=== PATIENT | male | born 1970 | race Caucasian/White ===

== ENCOUNTER 2024-10-06 12:24 | Inpatient (IN) | payer OTHER ==
[~2024-10-06] VITALS: Ht 172.7 cm; Wt 102.2 kg
[2024-10-06 12:29] VITALS: PULSE 105; RESP 21; O2SAT 100; O2SAT 99
[2024-10-06 12:43] LABS: PLATELET COUNT (AUTO) 149 K/uL (150-450); RED BLOOD CELL COUNT(AUTO) 3.86 MIL/uL (4.50-5.90); RED CELL DISTRIBUTION WIDTH 17.9 % (11.5-14.5); WHITE BLOOD COUNT (AUTO) 9.2 K/uL (4.5-11.0)
[2024-10-06] MEDS ORDERED: ASPI-1444 PO (12:46)
[2024-10-06] MEDS ORDERED: LEVO200 PO (12:46)
[2024-10-06] MEDS ORDERED: INSU3INS3 SQ (12:46)
[2024-10-06] MEDS ORDERED: PHOSLOC PO (12:46)
[2024-10-06] MEDS ORDERED: ATOR40TA28 PO (12:46)
[2024-10-06] MEDS ORDERED: FURO40TA6 PO (12:46)
[2024-10-06] MEDS ORDERED: AMLO-257 PO (12:46)
[2024-10-06] MEDS ORDERED: INSU100V42 SQ (12:46)
[2024-10-06 13:00] LABS: CALCIUM, TOTAL 10.5 mg/dL (8.8-10.5); CREATININE 4.33 mg/dL (0.60-1.30); GLOMERULAR FILTR. RATE CALC 14 mL/min (>60); GLUCOSE,RANDOM 248 mg/dL (70-110); SODIUM SERUM 141 mmol/L (136-145); UREA NITROGEN, BLOOD 15 mg/dL (7-18)
[2024-10-06 13:05] LABS: ASPARTATE AMINOTRANSFERASE 69 U/L (15-37); CREATINE KINASE, TOTAL ONLY 158 U/L (39-308); TOTAL PROTEIN, SERUM 7.3 g/dL (6.4-8.2)
[2024-10-06 13:14] LABS: TROPONIN I-HIGH SENSITIVITY 80 ng/L (<76)
[2024-10-06 13:20] LABS: LACTIC ACID 8.0 mmol/L (0.4-2.0)
[2024-10-06] MEDS: PROPOFOL 1000 MG/ISO-OSM 100 ML IV PRN (13:27)
[2024-10-06] MEDS ORDERED: FISH1CAP27 PO (13:35)
[2024-10-06] MEDS ORDERED: FOLI1CAP23 PO (13:35)
[2024-10-06] MEDS ORDERED: METR500 PO (13:35)
[2024-10-06] MEDS ORDERED: TRAM50TA5 PO (13:35)
[2024-10-06] MEDS ORDERED: ASCO500T20 PO (13:35)
[2024-10-06] MEDS ORDERED: LEVO50TA11 PO (13:35)
[2024-10-06] MEDS ORDERED: ONDANSETRON HCL 4 MG/2 ML VIAL IVP PRN (13:45)
[2024-10-06] MEDS: *CLINICAL-LEVOFLOXACIN IVPB DOSING CLINICAL ONE (14:03)
[2024-10-06] MEDS ORDERED: VANCOMYCIN 1GM/WATER(PEG/NADA) 200 ML IV PRN (14:15)
[2024-10-06 14:48] LABS: TROPONIN I-HIGH SENSITIVITY 469 ng/L (<76)
[2024-10-06] MEDS: HEPARIN SODIUM,PORCINE 5,000 UNITS/ML VIAL SQ SCH (16:00)
[2024-10-06] MEDS: LEVOFLOXACIN 750 MG/D5% WATER 150 ML IV ONE (16:02)
[2024-10-06 16:22] LABS: TROPONIN I-HIGH SENSITIVITY 1926 ng/L (<76)
[2024-10-06 16:23] LABS: LACTATE DEHYDROGENASE 360.0 U/L (85-227); PHOSPHORUS 4.3 mg/dL (2.5-4.9)
[2024-10-06] MEDS: VANCOMYCIN 1.5 GM/WATER(PEG) 300 ML IV ONE (16:33)
[2024-10-06 16:49] VITALS: PULSE 94; RESP 33; O2SAT 99
[2024-10-06 16:53] LABS: ABG BASE EXCESS 2.0 mmol/L (-2.0-3.0); ABG CARBOXYHEMOGLOBIN 0.3 % (0.5-1.5); ABG HCO3 26.6 mmol/L (21.0-28.0); ABG METHEMOGLOBIN 0.9 % (0.0-1.5); ABG OXYGEN CONTENT 15.1 mL/dL (15.0-23.0); ABG OXYGEN SATURATION 99.7 % (94.0-98.0); ABG OXYHEMOGLOBIN 98.5 % (94.0-98.0); ABG PCO2 33 mmHg (32.0-48.0); ABG PH 7.501 (7.350-7.450); ABG TOTAL HEMOGLOBIN 10.5 G/dL (13.5-17.5); FRACTIONATED INSPIRED OXYGEN 80.0 % (21-100.0); PO2, ARTERIAL BG 219.1 mmHg (83.0-108.0); SOURCE, BLOOD GAS ARTERIAL; TEMPERATURE, FAHRENHEIT, BG 99.1 FAHREN (96.0-98.6)
[2024-10-06] MEDS ORDERED: AMIODARONE HCL 50 MG/ML 3 ML VIAL ONE (18:00)
[2024-10-06] MEDS ORDERED: EPINEPHrine 1:10,000 [1 MG/10 ML] SYRINGE ONE (18:00)
[2024-10-06] MEDS ORDERED: CALCIUM CHLORIDE 100 MG/ML 10 ML SYRINGE IVP ONE (18:00)
[2024-10-06] MEDS ORDERED: SODIUM BICARBONATE [ADULT] 8.4% 50 MEQ/50 ML SYRINGE IVP ONE (18:00)
[2024-10-06] MEDS ORDERED: CALCIUM GLUCONATE 100 MG/ML 10 ML IVP ONE (18:00)
[2024-10-06 18:04] LABS: SITE, BLOOD GAS LFT BRACHIAL
[2024-10-06 18:05] LABS: ABG A-A DIFF O2 316.1 mmHg (10-20.0); O2 DEVICE,BLOOD GAS VENTILATOR (ROOM AIR); PEEP,BG 5 cm H2O; SET RATE, BG 20.0 min.; VT, ABG 420 ml
[2024-10-06] MEDS ORDERED: SODIUM CHLORIDE 0.9% 500 ML IV ONE (18:38)
[2024-10-06] MEDS ORDERED: PHENYLEPHRINE 200 MG/D5%-WATER 250 ML IV PRN (19:15)
[2024-10-06] MEDS: NOREPINEPHRINE 8 MG/0.9 % NACL 250 ML IV PRN (19:16)
[2024-10-06] MEDS: MetroNIDAZOLE 500 MG/NACL 100 ML IV SCH (19:22)
[2024-10-06] MEDS: FentaNYL CIT 1000MCG/0.9% NACL 100 ML IV PRN (19:30)
[2024-10-06 19:53] VITALS: PULSE 73; RESP 24; O2SAT 98
[2024-10-06 19:54] VITALS: PULSE 73; RESP 24; O2SAT 98
[2024-10-06 20:00] VITALS: BP 101/50; PULSE 73; RESP 18; RESP 25; TEMP 99; O2SAT 100
[2024-10-06] MEDS ORDERED: DEXTROSE 50%-WATER 25 GM/50 ML SYRINGE IVP PRN (20:15)
[2024-10-06] MEDS: DOCUSATE SODIUM 100 MG CAPSULE PO SCH (20:39)
[2024-10-06 20:56] LABS: GLUCOMETER DEV NAME(LOC) ICU.S6; GLUCOSE,POINT OF CARE 243 MG/DL (70-110)
[2024-10-06] MEDS: CHLORHEXIDINE GLUCONATE 2% TOWELETTE [2'S/6'S] TP SCH (21:19)
[2024-10-06 21:20] LABS: ASPARTATE AMINOTRANSFERASE 107.0 U/L (15-37); CREATININE 4.7 mg/dL (0.60-1.30); GLOMERULAR FILTR. RATE CALC 13.0 mL/min (>60); GLUCOSE,RANDOM 238.0 mg/dL (70-110); SODIUM SERUM 138.0 mmol/L (136-145); TOTAL PROTEIN, SERUM 6.7 g/dL (6.4-8.2); UREA NITROGEN, BLOOD 22.0 mg/dL (7-18)
[2024-10-06 21:46] LABS: CALCIUM, TOTAL 8.8 mg/dL (8.8-10.5); PHOSPHORUS 4.1 mg/dL (2.5-4.9)
[2024-10-06 22:08] VITALS: PULSE 54; RESP 18; O2SAT 99
[2024-10-07] VITALS (17 sets, daily range): BP systolic 93–140; BP diastolic 45–73; PULSE 40–75; RESP 18–22; TEMP 92.3–93.5; O2SAT 98–100
[2024-10-07] MEDS: INSULIN LISPRO 100 UNITS/ML SQ PRN (00:15)
[2024-10-07 01:24] LABS: ABG BASE EXCESS -1.3 mmol/L (-2.0-3.0); ABG CARBOXYHEMOGLOBIN 0.3 % (0.5-1.5); ABG HCO3 23.4 mmol/L (21.0-28.0); ABG METHEMOGLOBIN 0.3 % (0.0-1.5); ABG OXYGEN CONTENT 16.1 mL/dL (15.0-23.0); ABG OXYGEN SATURATION 99.0 % (94.0-98.0); ABG OXYHEMOGLOBIN 98.4 % (94.0-98.0); ABG PCO2 35 mmHg (32.0-48.0); ABG PH 7.430 (7.350-7.450); ABG TOTAL HEMOGLOBIN 11.4 G/dL (13.5-17.5); FRACTIONATED INSPIRED OXYGEN 60.0 % (21-100.0); PO2, ARTERIAL BG 143.9 mmHg (83.0-108.0); SOURCE, BLOOD GAS ARTERIAL; TEMPERATURE, FAHRENHEIT, BG 91.0 FAHREN (96.0-98.6)
[2024-10-07 01:25] LABS: ALLEN TEST, BLOOD GAS Positive; FLOW, BLOOD GAS 15.00 L/min (0.00-15.00); O2 DEVICE,BLOOD GAS VENTILATOR (ROOM AIR); SITE, BLOOD GAS LFT RADIAL; VT, ABG 420 ml
[2024-10-07 01:26] LABS: PEEP,BG 5 cm H2O; SET RATE, BG 18.0 min.
[2024-10-07 01:31] LABS: GLUCOMETER DEV NAME(LOC) ICUN.5; GLUCOSE,POINT OF CARE 198 MG/DL (70-110)
[2024-10-07 02:29] LABS: ASPARTATE AMINOTRANSFERASE 100.0 U/L (15-37); CALCIUM, TOTAL 9.2 mg/dL (8.8-10.5); CREATININE 5.14 mg/dL (0.60-1.30); GLOMERULAR FILTR. RATE CALC 12.0 mL/min (>60); GLUCOSE,RANDOM 199.0 mg/dL (70-110); PHOSPHORUS 4.7 mg/dL (2.5-4.9); SODIUM SERUM 136.0 mmol/L (136-145); TOTAL PROTEIN, SERUM 7.3 g/dL (6.4-8.2); UREA NITROGEN, BLOOD 27.0 mg/dL (7-18)
[2024-10-07] MEDS: ATROPINE SULFATE 0.1 MG/ML 10 ML SYRINGE IVP ONE (02:29)
[2024-10-07] MEDS ORDERED: DOPamine 400MG/D5W[STANDARD] 250 ML IV PRN ×2 (02:30→07:15)
[2024-10-07] MEDS: DEXTROSE 50%-WATER 25 GM/50 ML SYRINGE IVP ONE (03:51)
[2024-10-07] MEDS: INSULIN REGULAR, HUMAN 100 UNITS/ML IVP ONE (03:52)
[2024-10-07] MEDS: CALCIUM GLUCONATE 100 MG/ML 10 ML IVP ONE (03:52)
[2024-10-07] MEDS: SODIUM BICARBONATE [ADULT] 8.4% 50 MEQ/50 ML SYRINGE IVP ONE (03:52)
[2024-10-07] MEDS ORDERED: 0.9% SODIUM CHLORIDE 5 ML NEB SOLUTION NEB ONE (03:52)
[2024-10-07] MEDS: ALBUTEROL SULFATE 2.5 MG/0.5 ML NEB SOLUTION NEB ONE (04:00)
[2024-10-07 05:42] LABS: PLATELET COUNT (AUTO) 145 K/uL (150-450); RED BLOOD CELL COUNT(AUTO) 3.48 MIL/uL (4.50-5.90); RED CELL DISTRIBUTION WIDTH 17.5 % (11.5-14.5); WHITE BLOOD COUNT (AUTO) 8.5 K/uL (4.5-11.0)
[2024-10-07 05:53] LABS: ASPARTATE AMINOTRANSFERASE 92.0 U/L (15-37); CALCIUM, TOTAL 9.5 mg/dL (8.8-10.5); CREATININE 5.45 mg/dL (0.60-1.30); GLOMERULAR FILTR. RATE CALC 11.0 mL/min (>60); GLUCOSE,RANDOM 163.0 mg/dL (70-110); SODIUM SERUM 139.0 mmol/L (136-145); TOTAL PROTEIN, SERUM 6.9 g/dL (6.4-8.2); UREA NITROGEN, BLOOD 28.0 mg/dL (7-18)
[2024-10-07 08:06] LABS: GLUCOMETER DEV NAME(LOC) ICU.S6; GLUCOSE,POINT OF CARE 160 MG/DL (70-110)
[2024-10-07 08:27] LABS: ABG BASE EXCESS 2.3 mmol/L (-2.0-3.0); ABG CARBOXYHEMOGLOBIN 0.1 % (0.5-1.5); ABG HCO3 26.8 mmol/L (21.0-28.0); ABG METHEMOGLOBIN 0.3 % (0.0-1.5); ABG OXYGEN CONTENT 13.5 mL/dL (15.0-23.0); ABG OXYGEN SATURATION 98.7 % (94.0-98.0); ABG OXYHEMOGLOBIN 98.3 % (94.0-98.0); ABG PCO2 28 mmHg (32.0-48.0); ABG TOTAL HEMOGLOBIN 9.6 G/dL (13.5-17.5); FRACTIONATED INSPIRED OXYGEN 50.0 % (21-100.0); PO2, ARTERIAL BG 114.2 mmHg (83.0-108.0); SOURCE, BLOOD GAS ARTERIAL; TEMPERATURE, FAHRENHEIT, BG 92.7 FAHREN (96.0-98.6)
[2024-10-07 08:29] LABS: ABG PH 7.567 (7.350-7.450); ALLEN TEST, BLOOD GAS POS; O2 DEVICE,BLOOD GAS VENTILATOR (ROOM AIR); PATIENT RATE, BG 18.0 min.; PEEP,BG 5 cm H2O; SET RATE, BG 18.0 min.; SITE, BLOOD GAS LFT RADIAL; VT, ABG 420 ml
[2024-10-07 08:56] LABS: PHOSPHORUS 4.6 mg/dL (2.5-4.9)
[2024-10-07] MEDS ORDERED: FAMOTIDINE 20 MG TABLET PO SCH (09:00)
[2024-10-07] MEDS ORDERED: SODIUM CHLORIDE 0.9% 500 ML IV ONE (11:00)
[2024-10-07] MEDS: ROCURONIUM BROMIDE 10 MG/ML 5 ML VIAL IVP ONE (11:35)
[2024-10-07] MEDS ORDERED: NALO4SPR22 NASAL (12:19)
[2024-10-07] MEDS ORDERED: SEMA0.258 SQ (12:19)
[2024-10-07] MEDS ORDERED: INSU100I3 SQ (12:19)
[2024-10-07 13:10] LABS: TROPONIN I-HIGH SENSITIVITY 13255 ng/L (<76)
[2024-10-07 13:11] LABS: GLUCOMETER DEV NAME(LOC) ICUN.5; GLUCOSE,POINT OF CARE 121 MG/DL (70-110)
[2024-10-07] MEDS ORDERED: HEPARIN SODIUM,PORCINE 5,000 UNITS/ML VIAL IVP PRN ×2 (14:00)
[2024-10-07 14:15] LABS: ABG BASE EXCESS 3.4 mmol/L (-2.0-3.0); ABG CARBOXYHEMOGLOBIN 0.3 % (0.5-1.5); ABG HCO3 27.4 mmol/L (21.0-28.0); ABG METHEMOGLOBIN 0.3 % (0.0-1.5); ABG OXYGEN CONTENT 14.2 mL/dL (15.0-23.0); ABG OXYGEN SATURATION 98.7 % (94.0-98.0); ABG OXYHEMOGLOBIN 98.1 % (94.0-98.0); ABG PCO2 33 mmHg (32.0-48.0); ABG PH 7.516 (7.350-7.450); ABG TOTAL HEMOGLOBIN 10.1 G/dL (13.5-17.5); FRACTIONATED INSPIRED OXYGEN 50.0 % (21-100.0); PO2, ARTERIAL BG 104.9 mmHg (83.0-108.0); SOURCE, BLOOD GAS ARTERIAL; TEMPERATURE, FAHRENHEIT, BG 91.7 FAHREN (96.0-98.6)
[2024-10-07 14:16] LABS: ALLEN TEST, BLOOD GAS POS; O2 DEVICE,BLOOD GAS VENTILATOR (ROOM AIR); PATIENT RATE, BG 18.0 min.; PEEP,BG 5 cm H2O; SET RATE, BG 18.0 min.; SITE, BLOOD GAS LFT RADIAL; VT, ABG 380 ml
[2024-10-07 14:41] LABS: PLATELET COUNT (AUTO) 142 K/uL (150-450); RED BLOOD CELL COUNT(AUTO) 3.11 MIL/uL (4.50-5.90); RED CELL DISTRIBUTION WIDTH 18.0 % (11.5-14.5); WHITE BLOOD COUNT (AUTO) 8.6 K/uL (4.5-11.0)
[2024-10-07] MEDS: ASPIRIN 81 MG CHEWABLE TABLET PO ONE (14:41)
[2024-10-07] MEDS: PANTOPRAZOLE SODIUM 40 MG/VIAL IVP SCH (14:41)
[2024-10-07] MEDS: HEPARIN SODIUM 25000 UNITS/D5W 250 ML IV PRN (15:09)
[2024-10-07] MEDS: HEPARIN SODIUM,PORCINE 5,000 UNITS/ML VIAL IVP ONE (15:09)
[2024-10-07 18:32] LABS: ASPARTATE AMINOTRANSFERASE 66.0 U/L (15-37); CALCIUM, TOTAL 9.1 mg/dL (8.8-10.5); CREATININE 5.9 mg/dL (0.60-1.30); GLOMERULAR FILTR. RATE CALC 10.0 mL/min (>60); GLUCOSE,RANDOM 124.0 mg/dL (70-110); PHOSPHORUS 5.7 mg/dL (2.5-4.9); SODIUM SERUM 138.0 mmol/L (136-145); TOTAL PROTEIN, SERUM 6.6 g/dL (6.4-8.2); UREA NITROGEN, BLOOD 34.0 mg/dL (7-18)
[2024-10-07 19:38] LABS: ABG METHEMOGLOBIN 0.3 % (0.0-1.5); FRACTIONATED INSPIRED OXYGEN 35.0 % (21-100.0); SOURCE, BLOOD GAS ARTERIAL; TEMPERATURE, FAHRENHEIT, BG 93.3 FAHREN (96.0-98.6)
[2024-10-07 19:41] LABS: ABG BASE EXCESS 0.6 mmol/L (-2.0-3.0); ABG CARBOXYHEMOGLOBIN 0.6 % (0.5-1.5); ABG HCO3 25.0 mmol/L (21.0-28.0); ABG OXYGEN CONTENT 14.7 mL/dL (15.0-23.0); ABG OXYGEN SATURATION 97.1 % (94.0-98.0); ABG OXYHEMOGLOBIN 96.2 % (94.0-98.0); ABG PCO2 36 mmHg (32.0-48.0); ABG PH 7.456 (7.350-7.450); ABG TOTAL HEMOGLOBIN 10.8 G/dL (13.5-17.5); PO2, ARTERIAL BG 78.3 mmHg (83.0-108.0)
[2024-10-07 19:42] LABS: O2 DEVICE,BLOOD GAS VENTILATOR (ROOM AIR); SITE, BLOOD GAS LFT RADIAL
[2024-10-07 19:43] LABS: ABG A-A DIFF O2 132.3 mmHg (10-20.0); PATIENT RATE, BG 21.0 min.; PEEP,BG 5 cm H2O; SET RATE, BG 18.0 min.; SPONTANEOUS VT, BG 685 ml; VT, ABG 380 ml
[2024-10-07] MEDS: ATORVASTATIN CALCIUM 40 MG TABLET PO SCH (20:36)
[2024-10-08] VITALS (14 sets, daily range): BP systolic 108–164; BP diastolic 31–51; PULSE 63–83; RESP 18–26; TEMP 96.5–100.7; O2SAT 94–98
[2024-10-08] MEDS ORDERED: SODIUM CHLORIDE 0.9% 250 ML IV ONE (03:20)
[2024-10-08 03:40] LABS: GLUCOMETER DEV NAME(LOC) ICUN.5; GLUCOSE,POINT OF CARE 109 MG/DL (70-110)
[2024-10-08 04:26] LABS: PLATELET COUNT (AUTO) 169 K/uL (150-450); RED BLOOD CELL COUNT(AUTO) 3.41 MIL/uL (4.50-5.90); RED CELL DISTRIBUTION WIDTH 17.6 % (11.5-14.5); WHITE BLOOD COUNT (AUTO) 11.6 K/uL (4.5-11.0)
[2024-10-08 04:37] LABS: CALCIUM, TOTAL 8.8 mg/dL (8.8-10.5); CREATININE 6.3 mg/dL (0.60-1.30); GLOMERULAR FILTR. RATE CALC 9.0 mL/min (>60); GLUCOSE,RANDOM 124.0 mg/dL (70-110); SODIUM SERUM 135.0 mmol/L (136-145); UREA NITROGEN, BLOOD 36.0 mg/dL (7-18)
[2024-10-08] MEDS ORDERED: POLYETHYLENE GLYCOL 3350 17 GM PACKET GT SCH (07:00)
[2024-10-08] MEDS: VANCOMYCIN 500 MG/WATER(PEG) 100 ML IV ONE (08:36)
[2024-10-08] MEDS: POLYETHYLENE GLYCOL 3350 17 GM PACKET PO ONE (08:37)
[2024-10-08] MEDS: DOCUSATE SODIUM 100 MG/10 ML LIQUID UDCUP GT SCH (08:37)
[2024-10-08] MEDS: ASPIRIN 81 MG CHEWABLE TABLET PO SCH (08:37)
[2024-10-08] MEDS: ETHYL ALCOHOL 62% ANTISEPTIC NASAL SANITIZER 0.6 ML AMPUL NASAL SCH (08:38)
[2024-10-08] MEDS ORDERED: DOCUSATE SODIUM 100 MG CAPSULE GT SCH (09:00)
[2024-10-08 09:14] LABS: TROPONIN I-HIGH SENSITIVITY 8280 ng/L (<76)
[2024-10-08 09:56] LABS: GLUCOMETER DEV NAME(LOC) ICUN.5; GLUCOSE,POINT OF CARE 102 MG/DL (70-110)
[2024-10-08] MEDS: DEXMEDETOMIDINE 400 MCG/NS 100 ML IV PRN (10:37)
[2024-10-08] MEDS: ACETAMINOPHEN 325 MG TABLET PO PRN (10:51)
[2024-10-08] MEDS: LEVOFLOXACIN 500 MG/D5% WATER 100 ML IV SCH (15:37)
[2024-10-08] MEDS: PROPOFOL 1000 MG/ISO-OSM 100 ML IV PRN (15:46)
[2024-10-08 16:01] LABS: GLUCOMETER DEV NAME(LOC) ICUN.5; GLUCOSE,POINT OF CARE 134 MG/DL (70-110)
[2024-10-08 20:35] LABS: GLUCOMETER DEV NAME(LOC) ICUN.5; GLUCOSE,POINT OF CARE 137 MG/DL (70-110)
[2024-10-08 22:55] LABS: OCCULT BLOOD,GASTRIC FLUID POSITIVE (NEGATIVE); PH, GASTRIC OKAY
[2024-10-09] VITALS (22 sets, daily range): BP systolic 92–143; BP diastolic 27–69; PULSE 56–81; RESP 11–21; TEMP 98.7–99.7; O2SAT 96–99
[2024-10-09 01:11] LABS: GLUCOMETER DEV NAME(LOC) ICUN.5; GLUCOSE,POINT OF CARE 124 MG/DL (70-110)
[2024-10-09 05:28] LABS: PLATELET COUNT (AUTO) 198 K/uL (150-450); RED BLOOD CELL COUNT(AUTO) 3.35 MIL/uL (4.50-5.90); RED CELL DISTRIBUTION WIDTH 17.7 % (11.5-14.5); WHITE BLOOD COUNT (AUTO) 13.0 K/uL (4.5-11.0)
[2024-10-09 05:43] LABS: CALCIUM, TOTAL 8.6 mg/dL (8.8-10.5); CREATININE 8.02 mg/dL (0.60-1.30); GLOMERULAR FILTR. RATE CALC 7.0 mL/min (>60); GLUCOSE,RANDOM 138.0 mg/dL (70-110); SODIUM SERUM 138.0 mmol/L (136-145); UREA NITROGEN, BLOOD 50.0 mg/dL (7-18)
[2024-10-09 06:25] LABS: GLUCOMETER DEV NAME(LOC) ICUN.5; GLUCOSE,POINT OF CARE 136 MG/DL (70-110)
[2024-10-09] MEDS: PANTOPRAZOLE SODIUM 40 MG/VIAL IVP SCH (08:49)
[2024-10-09 11:56] LABS: GLUCOMETER DEV NAME(LOC) ICUN.5; GLUCOSE,POINT OF CARE 129 MG/DL (70-110)
[2024-10-09] MEDS ORDERED: SODIUM CHLORIDE 0.9% 250 ML IV ONE (19:57)
[2024-10-09 20:06] LABS: GLUCOMETER DEV NAME(LOC) ICU.S6; GLUCOSE,POINT OF CARE 119 MG/DL (70-110)
[2024-10-10] VITALS (13 sets, daily range): BP systolic 91–127; BP diastolic 32–65; PULSE 52–76; RESP 18–28; TEMP 96.7–98.3; O2SAT 89–100
[2024-10-10 02:26] LABS: GLUCOMETER DEV NAME(LOC) ICU.S6; GLUCOSE,POINT OF CARE 119 MG/DL (70-110)
[2024-10-10 05:13] LABS: PLATELET COUNT (AUTO) 181 K/uL (150-450); RED BLOOD CELL COUNT(AUTO) 3.09 MIL/uL (4.50-5.90); RED CELL DISTRIBUTION WIDTH 17.8 % (11.5-14.5); WHITE BLOOD COUNT (AUTO) 7.0 K/uL (4.5-11.0)
[2024-10-10 05:20] LABS: CALCIUM, TOTAL 8.3 mg/dL (8.8-10.5); CREATININE 5.76 mg/dL (0.60-1.30); GLOMERULAR FILTR. RATE CALC 10.0 mL/min (>60); GLUCOSE,RANDOM 126.0 mg/dL (70-110); SODIUM SERUM 134.0 mmol/L (136-145); UREA NITROGEN, BLOOD 41.0 mg/dL (7-18)
[2024-10-10 07:00] LABS: GLUCOMETER DEV NAME(LOC) ICU.S6; GLUCOSE,POINT OF CARE 124 MG/DL (70-110)
[2024-10-10] MEDS: AMINO ACIDS/PROTEIN HYDROLYS 30 ML LIQUID TUBE NG SCH (09:49)
[2024-10-11] VITALS (23 sets, daily range): BP systolic 97–161; BP diastolic 35–71; PULSE 64–83; RESP 12–24; TEMP 96.3–97.4; O2SAT 97–99
[2024-10-11 01:51] LABS: GLUCOMETER DEV NAME(LOC) ICU.S6; GLUCOSE,POINT OF CARE 133 MG/DL (70-110)
[2024-10-11 06:11] LABS: CALCIUM, TOTAL 8.0 mg/dL (8.8-10.5); CREATININE 7.03 mg/dL (0.60-1.30); GLOMERULAR FILTR. RATE CALC 8.0 mL/min (>60); GLUCOSE,RANDOM 148.0 mg/dL (70-110); SODIUM SERUM 135.0 mmol/L (136-145); UREA NITROGEN, BLOOD 55.0 mg/dL (7-18)
[2024-10-11 06:14] LABS: PHOSPHORUS 8.8 mg/dL (2.5-4.9)
[2024-10-11 07:21] LABS: GLUCOMETER DEV NAME(LOC) ICU.S6; GLUCOSE,POINT OF CARE 140 MG/DL (70-110)
[2024-10-11] MEDS: VANCOMYCIN 1GM/WATER(PEG/NADA) 200 ML IV ONE (09:38)
[2024-10-11] MEDS: EPOETIN ALFA 10,000 UNITS/ML VIAL SQ SCH (09:39)
[2024-10-11] MEDS ORDERED: SODIUM CHLORIDE 0.9% 2,000 ML ONE (18:17)
[2024-10-12] VITALS (14 sets, daily range): BP systolic 114–152; BP diastolic 25–66; PULSE 63–89; RESP 15–24; TEMP 96.7–98.3; O2SAT 96–100
[2024-10-12 00:11] LABS: GLUCOMETER DEV NAME(LOC) ICU.S6; GLUCOSE,POINT OF CARE 139 MG/DL (70-110)
[2024-10-12 00:15] LABS: GLUCOMETER DEV NAME(LOC) ICU.S6; GLUCOSE,POINT OF CARE 121 MG/DL (70-110)
[2024-10-12 05:45] LABS: PLATELET COUNT (AUTO) 175 K/uL (150-450); RED BLOOD CELL COUNT(AUTO) 2.93 MIL/uL (4.50-5.90); RED CELL DISTRIBUTION WIDTH 17.6 % (11.5-14.5); WHITE BLOOD COUNT (AUTO) 4.9 K/uL (4.5-11.0)
[2024-10-12 06:02] LABS: ASPARTATE AMINOTRANSFERASE 55.0 U/L (15-37); CALCIUM, TOTAL 8.1 mg/dL (8.8-10.5); CREATININE 4.57 mg/dL (0.60-1.30); GLOMERULAR FILTR. RATE CALC 14.0 mL/min (>60); GLUCOSE,RANDOM 133.0 mg/dL (70-110); PHOSPHORUS 5.8 mg/dL (2.5-4.9); SODIUM SERUM 137.0 mmol/L (136-145); TOTAL PROTEIN, SERUM 6.0 g/dL (6.4-8.2); UREA NITROGEN, BLOOD 31.0 mg/dL (7-18)
[2024-10-12 11:01] LABS: GLUCOMETER DEV NAME(LOC) ICU.S6; GLUCOSE,POINT OF CARE 121 MG/DL (70-110)
[2024-10-12] MEDS: SEVELAMER CARBONATE 800 MG TABLET PO SCH (11:28)
[2024-10-12] MEDS ORDERED: HEPARIN SODIUM 25000 UNITS/D5W 250 ML IV PRN (14:00)
[2024-10-12] MEDS ORDERED: HEPARIN SODIUM,PORCINE 5,000 UNITS/ML VIAL IVP ONE (14:00)
[2024-10-12] MEDS ORDERED: HEPARIN SODIUM,PORCINE 5,000 UNITS/ML VIAL IVP PRN ×4 (14:00→14:15)
[2024-10-12 14:20] LABS: PLATELET COUNT (AUTO) 176 K/uL (150-450); RED BLOOD CELL COUNT(AUTO) 2.91 MIL/uL (4.50-5.90); RED CELL DISTRIBUTION WIDTH 18.0 % (11.5-14.5); WHITE BLOOD COUNT (AUTO) 4.9 K/uL (4.5-11.0)
[2024-10-12] MEDS: HEPARIN SODIUM,PORCINE 5,000 UNITS/ML VIAL IVP ONE (14:55)
[2024-10-12] MEDS: HEPARIN SODIUM 25000 UNITS/D5W 250 ML IV PRN (14:57)
[2024-10-12 20:40] LABS: GLUCOMETER DEV NAME(LOC) ICUN.5; GLUCOSE,POINT OF CARE 168 MG/DL (70-110)
[2024-10-13] VITALS (24 sets, daily range): BP systolic 102–149; BP diastolic 23–77; PULSE 62–90; RESP 16–27; TEMP 97.9–98.3; O2SAT 18–100
[2024-10-13 00:36] LABS: GLUCOMETER DEV NAME(LOC) ICU.S6; GLUCOSE,POINT OF CARE 153 MG/DL (70-110)
[2024-10-13 04:36] LABS: GLUCOMETER DEV NAME(LOC) ICUN.5; GLUCOSE,POINT OF CARE 140 MG/DL (70-110)
[2024-10-13 05:51] LABS: PLATELET COUNT (AUTO) 184 K/uL (150-450); RED BLOOD CELL COUNT(AUTO) 2.90 MIL/uL (4.50-5.90); RED CELL DISTRIBUTION WIDTH 17.5 % (11.5-14.5); WHITE BLOOD COUNT (AUTO) 4.4 K/uL (4.5-11.0)
[2024-10-13 07:56] LABS: GLUCOMETER DEV NAME(LOC) ICUN.5; GLUCOSE,POINT OF CARE 112 MG/DL (70-110)
[2024-10-13 08:50] LABS: ASPARTATE AMINOTRANSFERASE 59.0 U/L (15-37); CALCIUM, TOTAL 8.7 mg/dL (8.8-10.5); CREATININE 2.75 mg/dL (0.60-1.30); GLOMERULAR FILTR. RATE CALC 24.0 mL/min (>60); GLUCOSE,RANDOM 129.0 mg/dL (70-110); PHOSPHORUS 3.9 mg/dL (2.5-4.9); SODIUM SERUM 135.0 mmol/L (136-145); TOTAL PROTEIN, SERUM 6.5 g/dL (6.4-8.2); UREA NITROGEN, BLOOD 19.0 mg/dL (7-18)
[2024-10-13] MEDS: SODIUM CHLORIDE 0.9% 250 ML IV ONE (11:24)
[2024-10-13 13:50] LABS: GLUCOMETER DEV NAME(LOC) ICU.S6; GLUCOSE,POINT OF CARE 164 MG/DL (70-110)
[2024-10-13 19:36] LABS: GLUCOMETER DEV NAME(LOC) ICUN.5; GLUCOSE,POINT OF CARE 133 MG/DL (70-110)
[2024-10-14] VITALS (9 sets, daily range): BP systolic 103–151; BP diastolic 30–44; PULSE 68–89; RESP 18–29; TEMP 98–98.6; O2SAT 99–100
[2024-10-14 00:11] LABS: GLUCOMETER DEV NAME(LOC) ICU.S6; GLUCOSE,POINT OF CARE 139 MG/DL (70-110)
[2024-10-14 05:26] LABS: PLATELET COUNT (AUTO) 198 K/uL (150-450); RED BLOOD CELL COUNT(AUTO) 3.08 MIL/uL (4.50-5.90); RED CELL DISTRIBUTION WIDTH 17.1 % (11.5-14.5); WHITE BLOOD COUNT (AUTO) 5.8 K/uL (4.5-11.0)
[2024-10-14 05:27] LABS: CALCIUM, TOTAL 8.6 mg/dL (8.8-10.5); CREATININE 4.65 mg/dL (0.60-1.30); GLOMERULAR FILTR. RATE CALC 13.0 mL/min (>60); GLUCOSE,RANDOM 153.0 mg/dL (70-110); SODIUM SERUM 133.0 mmol/L (136-145); UREA NITROGEN, BLOOD 35.0 mg/dL (7-18)
[2024-10-14 05:55] LABS: GLUCOMETER DEV NAME(LOC) ICUN.5; GLUCOSE,POINT OF CARE 135 MG/DL (70-110)
[2024-10-14] MEDS: VANCOMYCIN 1GM/WATER(PEG/NADA) 200 ML IV ONE (09:02)
[2024-10-14 17:45] LABS: GLUCOMETER DEV NAME(LOC) ICU.S6; GLUCOSE,POINT OF CARE 151 MG/DL (70-110)
[2024-10-14] MEDS: MORPHINE SULFATE 4 MG/ML SYRINGE IVP ONE (18:00)
[2024-10-17] MEDS ORDERED: SCOPOLAMINE HYDROBROMIDE 1 MG/72 HOUR PATCH TD SCH (09:00)
== END 2024-10-14 20:00 | DRG 130 ==
LOC: EDBD 12:26 → EMS 12:26 → EDH 13:43 → ICU 18:07
PROVIDERS: ADMIT Internal Medicine; ATTEND Internal Medicine
PROC: 5A12012 Performance of Cardiac Output, Single, Manual (ICD-10-PCS; 2024-10-06)
PROC: 5A1955Z Respiratory Ventilation, Greater than 96 Consecutive Hours (ICD-10-PCS; 2024-10-06)
PROC: 0HQ1XZZ Repair Face Skin, External Approach (ICD-10-PCS; 2024-10-06)
PROC: 06HY33Z Insertion of Infusion Device into Lower Vein, Percutaneous Approach (ICD-10-PCS; 2024-10-07)
PROC: B54BZZA Ultrasonography of Right Lower Extremity Veins, Guidance (ICD-10-PCS; 2024-10-07)
PROC: 5A1D70Z Performance of Urinary Filtration, Intermittent, Less than 6 Hours Per Day (ICD-10-PCS; principal; 2024-10-09)
PROC: 5A1D70Z Performance of Urinary Filtration, Intermittent, Less than 6 Hours Per Day (ICD-10-PCS; 2024-10-11)
PROC: 5A1D70Z Performance of Urinary Filtration, Intermittent, Less than 6 Hours Per Day (ICD-10-PCS; 2024-10-13)
DX: J96.01 Acute respiratory failure with hypoxia (principal); I46.2 Cardiac arrest due to underlying cardiac condition; J69.0 Pneumonitis due to inhalation of food and vomit; I21.4 Non-ST elevation (NSTEMI) myocardial infarction; G92.8 Other toxic encephalopathy; R57.9 Shock, unspecified; I50.23 Acute on chronic systolic (congestive) heart failure; E83.39 Other disorders of phosphorus metabolism; D63.8 Anemia in other chronic diseases classified elsewhere; Z66 Do not resuscitate; G93.1 Anoxic brain damage, not elsewhere classified; N18.6 End stage renal disease; I49.01 Ventricular fibrillation; I25.10 Atherosclerotic heart disease of native coronary artery without angina pectoris; E11.51 Type 2 diabetes mellitus with diabetic peripheral angiopathy without gangrene; S01.119A Laceration without foreign body of unspecified eyelid and periocular area, initial encounter; E11.40 Type 2 diabetes mellitus with diabetic neuropathy, unspecified; E66.01 Morbid (severe) obesity due to excess calories; G40.909 Epilepsy, unspecified, not intractable, without status epilepticus; E11.22 Type 2 diabetes mellitus with diabetic chronic kidney disease; E87.20 Acidosis, unspecified; R00.1 Bradycardia, unspecified; N17.9 Acute kidney failure, unspecified; I11.0 Hypertensive heart disease with heart failure; I82.432 Acute embolism and thrombosis of left popliteal vein; E78.5 Hyperlipidemia, unspecified; X58.XXXA Exposure to other specified factors, initial encounter; Y92.89 Other specified places as the place of occurrence of the external cause; Y99.8 Other external cause status; Z88.0 Allergy status to penicillin; Z91.018 Allergy to other foods; Z83.3 Family history of diabetes mellitus; Z99.11 Dependence on respirator [ventilator] status; Z68.34 Body mass index [BMI] 34.0-34.9, adult; Y93.89 Activity, other specified; Z99.2 Dependence on renal dialysis; Z79.4 Long term (current) use of insulin; Z79.899 Other long term (current) drug therapy
CPT/HCPCS: 12013; 70450; 70486; 70551; 71045; 71275; 72125; 74018; 80048; 80053; 80076; 80202; 82271; 82550; 82805; 82962; 83605; 83615; 83735; 83880; 84100; 84484; 85025; 85610; 85730; 86850; 86900; 86901; 87040; 87070; 87081; 87205; 87340; 90935; 93005; 93306; 93970; 94002; 94003; 94760; 95816; 96365; 96368; 99291; G0480; J0171; J0282; J0461; J0610; J0712; J0885; J1644; J1815; J1956; J2270; J2405; J2470; J2704; J3010; J3490; J7030; J7040; J7050; J7060; 36415-L1; 36415-TC; J7613